=== PATIENT | male | born 1985 | race Caucasian/White ===

== ENCOUNTER 2018-05-15 14:23 | Emergency (ER) | payer OTHER ==
[~2018-05-15] VITALS: Ht 177.8 cm; Wt 115.0 kg
[2018-05-15 14:34] VITALS: BP 150/95
== END 2018-05-15 19:00 | disposition left against medical advice (07) ==
LOC: ER 14:23
DX: M79.603 Pain in arm, unspecified (principal); R07.0 Pain in throat; Z53.21 Procedure and treatment not carried out due to patient leaving prior to being seen by health care provider
CPT/HCPCS: 93005

== ENCOUNTER 2022-06-21 17:27 | Emergency (ER) | payer MEDICAID ==
[~2022-06-21] VITALS: Ht 177.8 cm; Wt 95.5 kg
[2022-06-21] MEDS ORDERED: propofol 10mg/ml 20ml vial IV ONE (17:40)
[2022-06-21 17:57] LABS: BASOPHILS # (AUTO) 0.1 X10'3 (0-0.2); BASOPHILS % (AUTO) 0.6 % (0-1); EOSINOPHILS # (AUTO) 0.1 X10'3 (0-0.9); EOSINOPHILS % (AUTO) 0.7 % (0-6); HEMATOCRIT 41.9 % (42.0-52.0); HEMOGLOBIN 14.6 g/dl (14.0-17.9); LYMPHOCYTES # (AUTO) 4.6 X10'3 (1.1-4.8); LYMPHOCYTES % (AUTO) 30.3 % (21-51); MEAN CORPUSCULAR HEMOGLOBIN 29.6 PG (27.0-31.0); MEAN CORPUSCULAR HGB CONC 34.9 g/dL (33.0-36.5); MEAN CORPUSCULAR VOLUME 84.9 FL (78-98); MEAN PLATELET VOLUME 7.3 FL (7.4-10.4); MONOCYTES # (AUTO) 0.9 X10'3 (0-0.9); MONOCYTES % (AUTO) 5.8 % (2-12); NEUTROPHILS # (AUTO) 9.4 X10'3 (1.8-7.7); NEUTROPHILS % (AUTO) 62.6 % (42-75); PLATELET COUNT 333 X10'3 (140-440); RED BLOOD COUNT 4.94 X10'6 (4.70-6.10); RED CELL DISTRIBUTION WIDTH 12.6 % (11.5-14.5)
[2022-06-21 18:10] LABS: ALBUMIN 4.6 G/DL (3.4-5.0); ALBUMIN/GLOBULIN RATIO 1.5 (1.1-1.5); ALKALINE PHOSPHATASE 45 IU/L (46-116); ANION GAP 13 (8-16); ASPARTATE AMINO TRANSFERASE 28 U/L (10-37); BILIRUBIN,TOTAL 0.7 MG/DL (0.1-1.0); BLOOD UREA NITROGEN 22 MG/DL (7-18); CALCIUM 9.5 MG/DL (8.5-10.1); CHLORIDE 99 MMOL/L (99-107); CREATININE 1.05 MG/DL (0.60-1.10); GLUCOSE 119 MG/DL (70-104); SODIUM 138 MMOL/L (135-145); TOTAL CARBON DIOXIDE 26.2 MMOL/L (24-32); TOTAL PROTEIN 7.7 G/DL (6.4-8.2); eGFR 80 ML/MIN
[2022-06-21 18:18] LABS: ALANINE AMINOTRANSFERASE 34 U/L (12-78); MAGNESIUM 2.2 MG/DL (1.5-2.4)
--- NOTE | 2022-06-21 19:03 | NUR ---
WASTED 16 MG OF ETOMIDATE AND 30 MG OF PROPOFOL WITH REINALDO CASE.
[2022-06-21 19:23] VITALS: BP 124/88
== END 2022-06-21 19:26 | disposition home or self-care (01) ==
LOC: ER 17:27
DX: I48.20 Chronic atrial fibrillation, unspecified (principal)
CPT/HCPCS: 36415; 71045; 80053; 83735; 83880; 84484; 85025; 92960; 93005; 99285; J7030

== ENCOUNTER 2022-06-25 22:38 | Emergency (ER) | payer MEDICAID ==
[~2022-06-25] VITALS: Ht 177.8 cm; Wt 104.5 kg
[~2022-06-25 22:38] MED LIST: etomidate 2mg/ml inj. ONE
[2022-06-25 23:08] LABS: BASOPHILS # (AUTO) 0.1 X10'3 (0-0.2); EOSINOPHILS # (AUTO) 0.2 X10'3 (0-0.9); HEMOGLOBIN 14.1 g/dl (14.0-17.9); MONOCYTES # (AUTO) 0.6 X10'3 (0-0.9); NEUTROPHILS % (AUTO) 38.4 % (42-75)
[2022-06-25 23:38] LABS: ALANINE AMINOTRANSFERASE 33 U/L (12-78); ASPARTATE AMINO TRANSFERASE 25 U/L (10-37); BILIRUBIN,TOTAL 0.4 MG/DL (0.1-1.0); BLOOD UREA NITROGEN 19 MG/DL (7-18); CHLORIDE 101 MMOL/L (99-107); GLUCOSE 86 MG/DL (70-104); MAGNESIUM 2.3 MG/DL (1.5-2.4); POTASSIUM 3.7 MMOL/L (3.5-5.1)
[2022-06-26 00:01] LABS: EOSINOPHILS % (AUTO) 2.2 % (0-6); HEMATOCRIT 39.7 % (42.0-52.0); LYMPHOCYTES # (AUTO) 5.3 X10'3 (1.1-4.8); LYMPHOCYTES % (AUTO) 52.6 % (21-51); MEAN CORPUSCULAR HEMOGLOBIN 30.5 PG (27.0-31.0); MEAN CORPUSCULAR HGB CONC 35.5 g/dL (33.0-36.5); MEAN CORPUSCULAR VOLUME 85.9 FL (78-98); MEAN PLATELET VOLUME 7.4 FL (7.4-10.4); MONOCYTES % (AUTO) 5.8 % (2-12); NEUTROPHILS # (AUTO) 3.9 X10'3 (1.8-7.7); PLATELET COUNT 276 X10'3 (140-440); RED BLOOD COUNT 4.62 X10'6 (4.70-6.10); RED CELL DISTRIBUTION WIDTH 12.6 % (11.5-14.5); WHITE BLOOD COUNT 10.1 X10'3 (4.5-11.0)
[2022-06-26 00:07] LABS: TOTAL CELLS COUNTED 100
[2022-06-26 00:08] LABS: PLATELET ESTIMATE NORMAL
[2022-06-26] MEDS ORDERED: aspirin 81mg, enteric-coated 1 TAB TABLET.DR PO ONE (00:25)
[2022-06-26] MEDS ORDERED: metoprolol succinate 25mg (24-HOUR) SR. Tablet PO ONE ×2 (00:25→01:15)
[2022-06-26 00:47] LABS: CHOL/HDL RATIO 8.1 (0.00-4.99); CHOLESTEROL 210 MG/DL (0-200); HDL CHOLESTEROL 26 MG/DL (35-60); LDL CHOLESTEROL 103 MG/DL (50-100); TRIGLYCERIDES 779 MG/DL (20-135)
[2022-06-26 00:51] LABS: SODIUM 138 MMOL/L (135-145)
[2022-06-26 00:52] LABS: TOTAL CARBON DIOXIDE 27.9 MMOL/L (24-32)
[2022-06-26 00:53] LABS: ANION GAP 12 (8-16)
[2022-06-26 00:54] LABS: BUN/CREATININE RATIO 18.6 (5.4-32.0); eGFR 83 ML/MIN
[2022-06-26 00:55] LABS: CALCIUM 8.7 MG/DL (8.5-10.1)
[2022-06-26 00:56] LABS: TOTAL PROTEIN 7.2 G/DL (6.4-8.2)
[2022-06-26 00:57] LABS: ALBUMIN/GLOBULIN RATIO 1.3 (1.1-1.5)
[2022-06-26 00:58] LABS: ALBUMIN 4.1 G/DL (3.4-5.0)
[2022-06-26 00:59] LABS: ALKALINE PHOSPHATASE 55 IU/L (46-116)
[2022-06-26] MEDS ORDERED: digoxin 250mcg (0.25mg) tablet PO ONE (01:20)
[2022-06-26] MEDS ORDERED: ASPI81TA52 PO (01:23)
[2022-06-26] MEDS ORDERED: FENO200C22 PO (01:23)
[2022-06-26] MEDS ORDERED: ROSU5TAB PO (01:23)
[2022-06-26] MEDS ORDERED: DIGO250T4 PO (01:23)
[2022-06-26 01:26] VITALS: BP 125/72
== END 2022-06-26 01:43 | disposition home or self-care (01) ==
LOC: ER 22:39
DX: R07.89 Other chest pain (principal)
CPT/HCPCS: 36415; 71045; 80053; 80061; 83735; 83880; 84484; 85007; 85025; 93005; 99285

== ENCOUNTER → 2023-11-28 | Outpatient (CLI) | payer MEDICAID ==
[~2023-11-28] MED LIST changes: +DIGO250T4 PO; +FENO200C22 PO; +ROSU5TAB PO; -etomidate 2mg/ml inj. ONE
== END | disposition home or self-care (01) ==
LOC: RAD 13:08
PROVIDERS: ATTEND Family Medicine
DX: M51.34 Other intervertebral disc degeneration, thoracic region (principal); M41.84 Other forms of scoliosis, thoracic region; M54.50 Low back pain, unspecified; M54.2 Cervicalgia
CPT/HCPCS: 72050; 72074; 72110